=== PATIENT | male | born 1980 | race Caucasian/White ===

== ENCOUNTER 2023-04-11 07:35 | Inpatient (IN) | payer MEDICAID, OTHER ==
[~2023-04-11] VITALS: Ht 188 cm; Wt 52.2 kg
[2023-04-11 08:24] LABS: HEMATOCRIT. 35.2 % (42.0-52.0); HEMOGLOBIN. 12.2 g/dL (14.0-18.0); MEAN CORPUSCULAR HEMOGLOBIN 31.5 pg (28.0-32.0); MEAN CORPUSCULAR VOLUME 91.1 fL (80.0-94.0); MEAN PLATELET VOLUME 7.7 fl (7.4-10.4); PLATELET 356 x1000/uL (130-400); RED BLOOD CELL COUNT 3.86 mill/uL (4.7-6.1); RED CELL DISTRIBUTION WIDTH 14.2 % (11.6-14.6)
[2023-04-11] MEDS ORDERED: LORAZEPAM 2MG/ML CPJ IV STA (08:25)
[2023-04-11] MEDS ORDERED: SODIUM CHLORIDE 0.9% 2,000 ML IV ONE (08:30)
[2023-04-11 08:31] LABS: CHLORIDE 71 mEq/L (98-107)
[2023-04-11 08:40] LABS: ETHANOL BLOOD 129 mg/dL (-10)
[2023-04-11 09:07] LABS: CLARITY URINE CLOUDY (CLEAR); COLOR URINE DARK YELLOW (YELLOW); KETONES URINE NEGATIVE (NEGATIVE); LEUKOCYTE ESTERASE URINE TRACE (NEGATIVE); NITRITE URINE NEGATIVE (NEGATIVE); OCCULT BLOOD URINE 2+ (NEGATIVE); PROTEIN URINE 3+ (NEGATIVE); SPECIFIC GRAVITY URINE 1.019 (1.005-1.030); UROBILINOGEN URINE 0.2 E.U./dL (0.2-1.0)
[2023-04-11 09:51] LABS: *AMPHETAMINES SCREEN URINE NEGATIVE (NEGATIVE); *BARBITURATES SCREEN URINE NEGATIVE (NEGATIVE); *BENZODIAZEPINES SCREEN URINE NEGATIVE (NEGATIVE); *COCAINE SCREEN URINE NEGATIVE (NEGATIVE); CANNABINOID URINE SCREEN PRESUMTIVE POSITIVE (NEGATIVE); METHADONE URINE SCREEN NEGATIVE (NEGATIVE); OPIATES URINE SCREEN NEGATIVE (NEGATIVE); PHENCYCLIDINE URINE SCREEN NEGATIVE (NEGATIVE)
[2023-04-11 11:39] LABS: PLATELET ESTIMATE NORMAL
[2023-04-11] MEDS ORDERED: ONDANSETRON HCL 4MG/2ML INJ IV ONE (11:45)
[2023-04-11] MEDS ORDERED: LORAZEPAM 2MG/ML CPJ IV ONE (11:45)
[2023-04-11] MEDS ORDERED: NA PHOS,M-B/NA PHOS,DI-BA ENEMA 118ML PR PRN (12:15)
[2023-04-11] MEDS ORDERED: MAGNESIUM/ALUMINUM HYDROXIDE/SIMETHICONE 30ML UDC PO PRN (12:15)
[2023-04-11] MEDS ORDERED: CLONIDINE 0.1MG TABLET PO PRN (12:15)
[2023-04-11] MEDS ORDERED: IPRATROPIUM/ALBUTEROL 0.5-3(2.5)MG/3ML NEB HHN PRN (12:15)
[2023-04-11] MEDS ORDERED: DIPHENHYDRAMINE 50MG/ML VIAL IV PRN (12:15)
[2023-04-11] MEDS ORDERED: LORAZEPAM 2MG/ML CPJ IV PRN (13:00)
[2023-04-11] MEDS: BLOOD SUGAR DIAGNOSTIC STRIP TEST SCH ×3 (13:00→21:00)
[2023-04-11] MEDS ORDERED: DEXTROSE 50% WATER 50ML SYRINGE IV PRN (13:00)
[2023-04-11] MEDS: INSULIN LISPRO 100 UNITS/ML SUBCUT SCH ×3 (13:20→21:00)
[2023-04-11] MEDS ORDERED: MVI, ADULT NO.1 10 ML, FOLIC ACID 1 MG, THIAMINE HCL 100 MG in SODIUM CHLORIDE 0.9% 1,0... IV ONE ×4 (13:30)
[2023-04-11 13:44] LABS: BETA HYDROXYBUTYRATE 0.2 mMol/L (0.0-0.3); PHOSPHORUS 4.3 mg/dL (2.5-4.9)
[2023-04-11] MEDS ORDERED: PIPERACILLIN/TAZOBACTAM 3.375GM/50ML PREMIX IV SCH (13:45)
[2023-04-11] MEDS ORDERED: CEFTRIAXONE 1GM PREMIX 50 ML IV NR (14:00)
[2023-04-11] MEDS ORDERED: VANCOMYCIN 1.25GM PMX (XELLIA) 250 ML IV NR (14:15)
[2023-04-11] MEDS ORDERED: PIPERACILLIN/TAZ 3.375G PREMIX 50 ML IV NR (14:15)
[2023-04-11] MEDS ORDERED: MAGNESIUM 2 G PREMIX 50 ML IV NR (15:00)
[2023-04-11] MEDS: PANTOPRAZOLE SODIUM 40 MG/VIAL IV SCH (15:30)
[2023-04-11 16:52] VITALS: BP 137/74; PULSE 122; RESP 26; TEMP 98.8
[2023-04-11 17:04] LABS: FOLIC ACID (FOLATE) SERUM 8.9 ng/mL (>5.38)
[2023-04-11 18:04] LABS: AMYLASE 87 IU/L (25-115); CREATINE KINASE 517 IU/L (39-308); CREATINE KINASE MB FRACTION 3.3 ng/mL (0.5-3.6); TOTAL IRON BINDING CAPACITY 243 ug/dL (250-450)
[2023-04-11] MEDS ORDERED: CHLORDIAZEPOXIDE 25MG CAPSULE PO NR (18:30)
[2023-04-11 20:00] VITALS: BP 142/80; PULSE 101; RESP 17; TEMP 99
[2023-04-11] MEDS: PIPERACILLIN/TAZOBACTAM 3.375G in DEXT 5% WATER 50ML IV SCH (23:05)
[2023-04-11 23:52] LABS: CREATINE KINASE MB FRACTION 2.4 ng/mL (0.5-3.6)
[2023-04-12] VITALS: BP 141/84; PULSE 101; RESP 23; TEMP 98.6
[2023-04-12] MEDS: CHLORDIAZEPOXIDE 25MG CAPSULE PO SCH ×4 (00:20→21:43)
[2023-04-12] MEDS: SODIUM CHLORIDE 0.9% 1,000 ML IV SCH ×4 (00:23→23:08)
[2023-04-12] MEDS: HYDROCODONE/ACETAMINOPHEN 7.5/325MG TABLET PO PRN ×2 (00:23→23:05)
[2023-04-12 04:00] VITALS: BP 135/75; PULSE 87; RESP 16; TEMP 98.5
[2023-04-12] MEDS: BLOOD SUGAR DIAGNOSTIC STRIP TEST SCH ×4 (06:50→21:40)
[2023-04-12] MEDS: PIPERACILLIN/TAZOBACTAM 3.375G in DEXT 5% WATER 50ML IV SCH ×3 (07:06→23:01)
[2023-04-12] MEDS: INSULIN LISPRO 100 UNITS/ML SUBCUT SCH ×4 (07:11→21:00)
[2023-04-12 07:27] LABS: BASOPHILS % 0.2 % (0.0-2.0); EOSINOPHILS % 0.3 % (0.0-5.0); HEMATOCRIT. 26.7 % (42.0-52.0); HEMOGLOBIN. 9.1 g/dL (14.0-18.0); LYMPHOCYTES % 16.5 % (20.0-50.0); MEAN CORPUSCULAR HEMOGLOBIN 31.4 pg (28.0-32.0); MEAN CORPUSCULAR VOLUME 91.9 fL (80.0-94.0); MEAN PLATELET VOLUME 8.5 fl (7.4-10.4); PLATELET 211 x1000/uL (130-400); RED CELL DISTRIBUTION WIDTH 13.7 % (11.6-14.6)
[2023-04-12 07:30] LABS: CHLORIDE 91 mEq/L (98-107)
[2023-04-12 07:54] LABS: HDL CHOLESTEROL 96 mg/dL (40-59); LDL CHOLESTEROL 52 mg/dL (5-100); T4 FREE 0.91 ng/dL (0.76-1.46)
[2023-04-12 08:00] VITALS: BP 143/83; PULSE 85; RESP 18; TEMP 98.5
[2023-04-12] MEDS: FOLIC ACID 1MG TABLET PO SCH (08:52)
[2023-04-12] MEDS: PANTOPRAZOLE SODIUM 40 MG/VIAL IV SCH (08:52)
[2023-04-12] MEDS: THIAMINE HCL 100MG TABLET PO SCH (08:52)
[2023-04-12] MEDS ORDERED: VANCOMYCIN 1.25GM PMX (XELLIA) 250 ML IV SCH (10:00)
[2023-04-12] MEDS ORDERED: VANCOMYCIN 1G PREMIX 200 ML IV SCH (10:00)
[2023-04-12] MEDS ORDERED: MAGNESIUM 2 G PREMIX 50 ML IV ONE (10:00)
[2023-04-12 12:00] VITALS: BP 144/87; PULSE 71; RESP 18; TEMP 99
[2023-04-12] MEDS: KCL 20MEQ/100ML PREMIX 100 ML IV SCH ×2 (13:25→15:54)
[2023-04-12] MEDS ORDERED: CEFTRIAXONE 1,000 MG in DEXTROSE 5% WATER 50 ML IV SCH (14:00)
[2023-04-12 16:00] VITALS: BP 142/79; PULSE 83; RESP 18; TEMP 99
[2023-04-12 20:00] VITALS: BP 153/89; PULSE 86; RESP 12; TEMP 98.7
[2023-04-13] VITALS: BP 146/91; PULSE 89; RESP 16; TEMP 98.7
[2023-04-13] MEDS: ONDANSETRON HCL 4MG/2ML INJ IV PRN ×2 (01:20→23:58)
[2023-04-13] MEDS: HYDROCODONE/ACETAMINOPHEN 7.5/325MG TABLET PO PRN ×3 (03:21→22:03)
[2023-04-13 04:00] VITALS: BP 141/88; PULSE 66; RESP 11; TEMP 98.8
[2023-04-13 05:29] LABS: SODIUM URINE (RAW) 38 mEq/L; SODIUM URINE 24 HR 102 mEq/24hr (40-220)
[2023-04-13] MEDS: CHLORDIAZEPOXIDE 25MG CAPSULE PO SCH ×3 (06:02→22:03)
[2023-04-13] MEDS: PIPERACILLIN/TAZOBACTAM 3.375G in DEXT 5% WATER 50ML IV SCH ×3 (06:02→23:49)
[2023-04-13] MEDS: BLOOD SUGAR DIAGNOSTIC STRIP TEST SCH ×4 (06:12→21:45)
[2023-04-13] MEDS: INSULIN LISPRO 100 UNITS/ML SUBCUT SCH ×4 (07:20→22:02)
[2023-04-13 07:55] LABS: BASOPHILS % 0.2 % (0.0-2.0); HEMOGLOBIN. 8.3 g/dL (14.0-18.0); LYMPHOCYTES % 13.5 % (20.0-50.0); MEAN CORPUSCULAR HEMOGLOBIN 31.8 pg (28.0-32.0); MEAN CORPUSCULAR VOLUME 91.7 fL (80.0-94.0); MONOCYTES % 3.7 % (2.0-8.0); NEUTROPHILS % 81.6 % (40.0-76.0); PLATELET 158 x1000/uL (130-400); RED BLOOD CELL COUNT 2.61 mill/uL (4.7-6.1); RED CELL DISTRIBUTION WIDTH 13.7 % (11.6-14.6)
[2023-04-13 08:00] VITALS: BP 142/91; PULSE 73; RESP 13; TEMP 98.4
[2023-04-13] MEDS: PANTOPRAZOLE SODIUM 40 MG/VIAL IV SCH ×2 (08:06→22:02)
[2023-04-13] MEDS: FOLIC ACID 1MG TABLET PO SCH (08:06)
[2023-04-13] MEDS: THIAMINE HCL 100MG TABLET PO SCH (08:06)
[2023-04-13] MEDS: SODIUM CHLORIDE 0.9% 1,000 ML IV SCH ×2 (08:06→17:22)
[2023-04-13 08:21] LABS: CHLORIDE 96 mEq/L (98-107)
[2023-04-13] MEDS ORDERED: NALOXONE HCL 0.4MG/ML VIAL IV PRN (10:30)
[2023-04-13] MEDS: KCL 20MEQ/100ML PREMIX 100 ML IV SCH ×2 (10:54→14:20)
[2023-04-13 12:00] VITALS: BP 141/88; PULSE 78; RESP 12; TEMP 98.7
[2023-04-13 20:00] VITALS: BP 141/78; PULSE 81; RESP 16; TEMP 98.2
[2023-04-14] VITALS: BP 144/83; PULSE 97; RESP 20; TEMP 98.9
[2023-04-14] MEDS: HYDROCODONE/ACETAMINOPHEN 7.5/325MG TABLET PO PRN ×2 (02:23→12:18)
[2023-04-14 04:00] VITALS: BP 131/81; PULSE 80; RESP 16; TEMP 98.6
[2023-04-14] MEDS: CHLORDIAZEPOXIDE 25MG CAPSULE PO SCH ×2 (05:47→15:44)
[2023-04-14] MEDS: PIPERACILLIN/TAZOBACTAM 3.375G in DEXT 5% WATER 50ML IV SCH ×2 (05:47→14:00)
[2023-04-14] MEDS: SODIUM CHLORIDE 0.9% 1,000 ML IV SCH ×2 (05:49→14:16)
[2023-04-14 06:50] LABS: BASOPHILS % 0.3 % (0.0-2.0); EOSINOPHILS % 1.5 % (0.0-5.0); HEMATOCRIT. 26.2 % (42.0-52.0); LYMPHOCYTES % 17.2 % (20.0-50.0); MEAN CORPUSCULAR HEMOGLOBIN 32.1 pg (28.0-32.0); MEAN CORPUSCULAR VOLUME 92.9 fL (80.0-94.0); MEAN PLATELET VOLUME 9.1 fl (7.4-10.4); MONOCYTES % 4.9 % (2.0-8.0); NEUTROPHILS % 76.1 % (40.0-76.0); PLATELET 165 x1000/uL (130-400); RED BLOOD CELL COUNT 2.82 mill/uL (4.7-6.1); RED CELL DISTRIBUTION WIDTH 13.9 % (11.6-14.6)
[2023-04-14] MEDS: INSULIN LISPRO 100 UNITS/ML SUBCUT SCH ×2 (07:20→12:20)
[2023-04-14] MEDS: BLOOD SUGAR DIAGNOSTIC STRIP TEST SCH ×2 (07:35→11:50)
[2023-04-14 07:40] LABS: CHLORIDE 100 mEq/L (98-107)
[2023-04-14 07:55] VITALS: BP 127/86; PULSE 79; RESP 19; TEMP 98.3
[2023-04-14 08:04] LABS: PHOSPHORUS 3.3 mg/dL (2.5-4.9)
[2023-04-14] MEDS: THIAMINE HCL 100MG TABLET PO SCH (08:34)
[2023-04-14] MEDS: FOLIC ACID 1MG TABLET PO SCH (08:34)
[2023-04-14] MEDS: PANTOPRAZOLE SODIUM 40 MG/VIAL IV SCH (08:34)
[2023-04-14 12:00] VITALS: BP 123/76; PULSE 84; RESP 13; TEMP 98
[2023-04-14 12:18] VITALS: RESP 19
[2023-04-14] MEDS ORDERED: FOLI-43 PO (15:46)
[2023-04-14] MEDS ORDERED: THIA100T72 PO (15:46)
[2023-04-14] MEDS ORDERED: PANT20TA17 PO (15:46)
[2023-04-14 16:14] VITALS: BP 127/86; PULSE 79; TEMP 98; O2SAT 99
== END 2023-04-14 17:09 | disposition home or self-care (01) | DRG 720 ==
LOC: ER 07:47 → 3WST 11:43 → EDBEDREQTM 12:14 → EDBEDREQ 12:14
PROVIDERS: ADMIT Internal Medicine; ATTEND Internal Medicine
DX: A41.9 Sepsis, unspecified organism (principal); N17.9 Acute kidney failure, unspecified; E83.51 Hypocalcemia; E87.1 Hypo-osmolality and hyponatremia; D64.9 Anemia, unspecified; E11.9 Type 2 diabetes mellitus without complications; N28.89 Other specified disorders of kidney and ureter; N39.0 Urinary tract infection, site not specified; K70.10 Alcoholic hepatitis without ascites; F10.929 Alcohol use, unspecified with intoxication, unspecified; F10.939 Alcohol use, unspecified with withdrawal, unspecified; K29.70 Gastritis, unspecified, without bleeding; F12.929 Cannabis use, unspecified with intoxication, unspecified; E86.0 Dehydration; E83.42 Hypomagnesemia; I10 Essential (primary) hypertension; Y90.6 Blood alcohol level of 120-199 mg/100 ml; F17.210 Nicotine dependence, cigarettes, uncomplicated; E03.8 Other specified hypothyroidism; Z71.41 Alcohol abuse counseling and surveillance of alcoholic; Z79.899 Other long term (current) drug therapy
CPT/HCPCS: 36415; 71045; 74176; 76700; 80048; 80053; 80061; 80076; 80202; 80305; 80307; 80320; 80329; 81003; 82010; 82140; 82150; 82550; 82553; 82607; 82728; 82746; 82962; 83036; 83540; 83550; 83605; 83735; 83930; 83935; 84100; 84145; 84300; 84439; 84443; 84481; 84484; 85025; 93005; 93970; 97110; 97162; 99285; C9113; J1815; J2060; J2405; J2543; J3370; J3411; J3475; J3480; J3490; J7030; J7060; G0480